=== PATIENT | male | born 1960 | race Caucasian/White ===

== ENCOUNTER → 2017-05-27 | Day surgery (SDC) | payer BC ==
[~2017-05-27] MED LIST: LIDOCAINE 1% PF 2 ML VIAL. ID; LIDOCAINE 2% 100 MG/5 ML SYRINGE.; MIDAZOLAM HCL/PF 2 MG/2 ML VIAL. IV; PROPOFOL 40 ML IV; fentaNYL PF VIAL 100 MCG/2 ML VIAL IV
[2017-05-27] MEDS: IV RINGERS,LACTATED 1000ML 1,000 ML IV (08:15)
== END | disposition home or self-care (01) ==
LOC: ENDOS 07:35
DX: Z12.11 Encounter for screening for malignant neoplasm of colon (principal); K64.0 First degree hemorrhoids; Z86.010 Personal history of colon polyps; I10 Essential (primary) hypertension; M19.90 Unspecified osteoarthritis, unspecified site; Z90.49 Acquired absence of other specified parts of digestive tract; Z79.899 Other long term (current) drug therapy; Z72.89 Other problems related to lifestyle
CPT/HCPCS: 45378; J2704

== ENCOUNTER → 2017-06-22 | Outpatient (CLI) | payer BC | END | disposition home or self-care (01) | LOC: KCIC MRI 16:02 | DX: M75.101 Unspecified rotator cuff tear or rupture of right shoulder, not specified as traumatic (principal) | CPT/HCPCS: 73221 ==

== ENCOUNTER 2017-11-17 11:03 | Day surgery (SDC) | payer BC ==
[~2017-11-17] VITALS: Ht 184.2 cm; Wt 103.0 kg
[~2017-11-17 11:03] MED LIST changes: +ALPR0.25 PO; +CYCL10TA2 PO; +EPINEPHrine VIAL 30 MG/30 ML VIAL ONE; -LIDOCAINE 1% PF 2 ML VIAL. ID; -LIDOCAINE 2% 100 MG/5 ML SYRINGE.; -MIDAZOLAM HCL/PF 2 MG/2 ML VIAL. IV; +NAPR-514 PO; +OXYC-327 PO; -PROPOFOL 40 ML IV; +SERT100T PO; +TEMA7.5C PO; +TRAM50TA PO; +TRAZ-85 PO; +VALS1TAB8 PO; -fentaNYL PF VIAL 100 MCG/2 ML VIAL IV
[2017-11-17] MEDS ORDERED: IV RINGERS,LACTATED 1000ML 1,000 ML IV SCH ×2 (11:08→14:46)
[2017-11-17] MEDS ORDERED: fentaNYL PF VIAL 100 MCG/2 ML VIAL IV PRN ×3 (11:15→15:00)
[2017-11-17] MEDS ORDERED: LIDOCAINE 1% PF 2 ML VIAL. ID PRN ×2 (11:15→15:00)
[2017-11-17] MEDS ORDERED: MIDAZOLAM HCL/PF 2 MG/2 ML VIAL. IV PRN (11:15)
[2017-11-17] MEDS ORDERED: MIDAZOLAM HCL/PF 2 MG/2 ML VIAL. ONE (11:39)
[2017-11-17] MEDS ORDERED: ROPIVacaine 0.5% PF 20 ML VIAL. ONE (11:39)
[2017-11-17] MEDS ORDERED: PROPOFOL 20 ML IV ONE (12:00)
[2017-11-17] MEDS ORDERED: fentaNYL PF VIAL 100 MCG/2 ML VIAL ONE ×2 (12:00→13:06)
[2017-11-17] MEDS ORDERED: DEXAMETHASONE SOD PHOS 20 MG/5 ML VIAL. ONE (12:00)
[2017-11-17] MEDS ORDERED: ONDANSETRON PF 4 MG/2 ML VIAL. ONE (12:00)
[2017-11-17] MEDS ORDERED: ePHEDrine PF IN SALINE 50 MG/5 ML DISP.SYRIN IV ONE ×2 (12:32→14:52)
[2017-11-17] MEDS ORDERED: GLYCOPYRROLATE 1 MG/5 ML VIAL. ONE (13:10)
[2017-11-17] MEDS ORDERED: HYDROmorphone 2 MG/ML VIAL IV PRN (15:00)
[2017-11-17] MEDS ORDERED: ONDANSETRON PF 4 MG/2 ML VIAL. IV PRN (15:00)
[2017-11-17] MEDS ORDERED: KETOROLAC 30 MG/ML VIAL. ONE (15:00)
[2017-11-17] MEDS ORDERED: KETOROLAC 30 MG/ML VIAL. IV ONE (15:15)
--- NOTE | 2017-11-17 15:17 | DISCH ---
DISCHARGE INSTRUCTIONS Condition on Discharge Condition on Discharge: Stable Activity After Discharge Activity Instructions for Disc: Other, see below (passive range of motion left shoulder only, fine motor use okay with elbow at side) Other activity instructions: where immobilizer at night, may remove during day for pendulum exercises Exercise Instruction after Dis: Exercise per therapy Weight Bearing Status after Di: Non weight bearing Diet after Discharge Diet after Discharge: Regular Wound Incision Care Wound/Incision Care: Ice to area for comfort, Change dressing (remove dressing in 2 days may then shower report knee redness or drainage ongoing) Contacting the after DC Call your doctor for: Concerns you may have Follow-Up Follow up with: Juan J 7-10 days YASEMIN MEDRANO MD Nov 17, 2017 15:17
[2017-11-17] MEDS ORDERED: HYDR2TAB31 PO (15:19)
--- NOTE | 2017-11-17 15:35 | PDOC4 ---
Operative Note Operative Note Date of surgery: 11/17/2017 Preoperative diagnosis: Rotator cuff tear, biceps anchor fraying, acromioclavicular joint degenerative disease and pain Postoperative diagnosis: Same with full-thickness distal supraspinatus tear and biceps anchor compromise Operative procedure: Right shoulder arthroscopy biceps tenodesis distal clavicle excision, subacromial decompression, mini open rotator cuff repair Surgeon: Juan J Assist: Kandi Anesthesia: Gen. plus scalene block Estimated blood loss: 15 mL Complications: None Operative indications: Patient is a 57-year-old male with left shoulder pain unresponsive to nonoperative management. He had undergone previous injection with temporary and incomplete relief MRI shows a distal supraspinatus tear and significant superior labral fraying with biceps anchor compromise. I had gone over with him the typical treatment for this issue with rotator cuff repair planned likely biceps tenodesis addressing any other pathological conditions in the shoulder we had gone over the rationale for protection of these planned repairs the long recovery process typical possibility of infection nerve or blood vessel damage nonhealing continued pain medical or other anesthetic complications among others all his questions were answered he wishes to proceed with surgical evaluation and treatment. Operative text: Patient was identified procedure verified patient placed in the supine position on the operating table. After adequate amounts of general anesthesia plus a pre-existing scalene block were obtained he was placed in the decubitus position left side up using the beanbag and all bony prominences were well-padded shoulder was first examined under anesthesia found to have full range of motion no instability in the left shoulder was then prepped and draped in standard sterile fashion placed in the arthroscopic arm mac with a total of 15 pounds of traction after timeout was performed patient procedure identified and verified a standard posterior portal was established an anterior portal established using spinal needle localization and the shoulder joint was systematically examined he was as expected found to have significant labrum fraying and as this was trimmed back to stable tissue there was significant fraying and compromise of the biceps anchor certainly more than the 25% threshold and I elected to perform a biceps tenodesis therefore the biceps tendon was cut and tagged and the remainder the labrum debrided. There was certainly concern for a full-thickness tear of the distal supraspinatus well maintained glenohumeral joint normal bare area of the humerus and normal capsule ligament structures. Subacromial space was then entered and bursal was cleared for visualization he was indeed found to have a palpable full-thickness tear of the distal supraspinatus. Anterior acromial spur was removed to a type I acromion using an arthroscopic bur with cutting block technique distal clavicle was excised 1 cm to allow adequate joint space preserving the overlying joint capsule for stability bony fragments were evacuated with arthroscopic shaver. A RoomActually biceps tenodesis anchor was used after drilling to a size 8 and excellent bony fixation was obtained with good tension on the biceps. A dual row rotator cuff repair was carried out with a total of 22.9 double loaded Max braid juggernaut anchors that were secured laterally by a Quattro knotless link anchor laterally excellent apposition was noted through all degrees of internal/external rotation thorough irrigation again carried out normal saline solution closure accomplished with buried Vicryl suture subcuticular Monocryl sterile dressings were applied he was placed in an immobilizer extirpated transferred to postop holding in stable condition having tolerated procedure well. aKndi guaman was present for the procedure and assisted in the prepping draping retraction YASEMIN MEDRANO MD Nov 17, 2017 15:35
[2017-11-17] MEDS ORDERED: HYDROmorphone 2 MG TABLET PO ONE ×2 (15:45)
[2017-11-17] MEDS: PROCHLORPERAZINE 10 MG/2 ML VIAL. IV PRN ×2 (15:46→16:03)
[2017-11-17] MEDS: fentaNYL PF VIAL 100 MCG/2 ML VIAL IV PRN ×2 (15:47→16:03)
[2017-11-17] MEDS: MORPHINE SULFATE 2 MG/ML VIAL. IV PRN ×2 (15:48→16:04)
[2017-11-17 16:45] VITALS: BP 150/80
== END 2017-11-17 17:27 | disposition home or self-care (01) ==
LOC: SURG 11:03
PROVIDERS: ATTEND Orthopaedic Surgery
DX: S46.012A Strain of muscle(s) and tendon(s) of the rotator cuff of left shoulder, initial encounter (principal); M19.012 Primary osteoarthritis, left shoulder; S46.212A Strain of muscle, fascia and tendon of other parts of biceps, left arm, initial encounter; S43.432A Superior glenoid labrum lesion of left shoulder, initial encounter; I10 Essential (primary) hypertension; M76.30 Iliotibial band syndrome, unspecified leg; F41.9 Anxiety disorder, unspecified; F32.9 Major depressive disorder, single episode, unspecified; Z90.49 Acquired absence of other specified parts of digestive tract; Z79.899 Other long term (current) drug therapy; Z98.890 Other specified postprocedural states; Z82.49 Family history of ischemic heart disease and other diseases of the circulatory system; X58.XXXA Exposure to other specified factors, initial encounter; Y93.89 Activity, other specified; Y92.89 Other specified places as the place of occurrence of the external cause; Y99.8 Other external cause status
CPT/HCPCS: 23412; 29824; 29828; A7015; C1713; C1782; J0171; J0690; J0780; J1100; J1885; J2250; J2270; J2405; J2704; J2795; J3010; J3490; J7120

== ENCOUNTER 2018-02-09 08:29 | Day surgery (SDC) | payer BC ==
[~2018-02-09] VITALS: Ht 184.2 cm; Wt 103.9 kg
[~2018-02-09 08:29] MED LIST changes: +ALPR0.5T PO; -EPINEPHrine VIAL 30 MG/30 ML VIAL ONE; +HYDR2TAB31 PO; +HYDROmorphone 2 MG/ML VIAL IV PRN; +IV RINGERS,LACTATED 1000ML 1,000 ML IV SCH; +LIDOCAINE 1% PF 2 ML VIAL. ID PRN; +MORPHINE SULFATE 2 MG/ML VIAL. IV PRN; +ONDANSETRON PF 4 MG/2 ML VIAL. IV PRN; -OXYC-327 PO; +OXYC1TAB19 PO; +PROCHLORPERAZINE 10 MG/2 ML VIAL. IV PRN; +VALS1TAB14 PO; +fentaNYL PF VIAL 100 MCG/2 ML VIAL IV PRN
--- NOTE | 2018-02-09 09:13 | DISCH ---
DISCHARGE INSTRUCTIONS Condition on Discharge Condition on Discharge: Stable Activity After Discharge Activity Instructions for Disc: Other, see below (and motor use with elbow at side permitted, no lifting arm away from body actively) Exercise Instruction after Dis: Exercise per therapy (passive range of motion of right shoulder only for 1 month postoperatively) Weight Bearing Status after Di: Non weight bearing Diet after Discharge Diet after Discharge: Regular Wound Incision Care Wound/Incision Care: Ice to area for comfort, Change dressing (May remove dressing in 2 days may then shower no soaking until sutures removed) Community/Resources/Services Services at Discharge: PT EVALUATE & TREAT (passive range of motion right shoulder only one-month postop secondary to rotator cuff repair) Contacting the [facility] after DC Call your doctor for: Concerns you may have Follow-Up Follow up with: Juan J 7-10 days YASEMIN MEDRANO MD Feb 09, 2018 09:13
[2018-02-09] MEDS ORDERED: EPINEPHrine VIAL 30 MG/30 ML VIAL ONE (09:22)
[2018-02-09] MEDS ORDERED: MIDAZOLAM HCL/PF 2 MG/2 ML VIAL. ONE (09:26)
[2018-02-09] MEDS ORDERED: fentaNYL PF VIAL 100 MCG/2 ML VIAL ONE ×2 (09:27→13:39)
[2018-02-09] MEDS ORDERED: PROPOFOL 20 ML IV ONE (09:27)
[2018-02-09] MEDS ORDERED: DEXAMETHASONE SOD PHOS 20 MG/5 ML VIAL. ONE (09:27)
[2018-02-09] MEDS ORDERED: ONDANSETRON PF 4 MG/2 ML VIAL. ONE (09:27)
[2018-02-09] MEDS ORDERED: ROPIVacaine 0.5% PF 20 ML VIAL. ONE (09:30)
[2018-02-09] MEDS ORDERED: ROCURONIUM 50 MG/5 ML VIAL. ONE (09:46)
[2018-02-09] MEDS ORDERED: ePHEDrine PF IN SALINE 50 MG/5 ML DISP.SYRIN IV ONE (10:27)
[2018-02-09] MEDS ORDERED: SEVOFLURANE > 120 MINUTES. IH ONE (12:45)
[2018-02-09] MEDS ORDERED: oxyCODONE/APAP 7.5/325 1 TAB TABLET PO ONE (13:45)
[2018-02-09 13:50] VITALS: BP 129/74
--- NOTE | 2018-02-09 21:00 | PDOC4 ---
Operative Note Operative Note Date of surgery: 02/09/2018 Preoperative diagnosis: Right shoulder rotator cuff repair acromioclavicular joint pain and degenerative change and subacromial impingement Postoperative diagnosis: Same with type I SLAP tear Operative procedure: Right shoulder arthroscopy arthroscopic rotator cuff repair debridement of type I SLAP tear distal clavicle excision and subacromial decompression Surgeon: Juan J Assist: Timoteo Willis nurse practitioner Anesthesia: Gen. plus scalene block Estimated blood loss: 10 mL Complications: None Operative indications: Patient is a 57-year-old male who had excellent results from a left shoulder rotator cuff repair and has had similar symptoms on the right with MRI confirming the clinical suspicion of a rotator cuff tear. He also appears to have significant acromioclavicular joint pain and degenerative changes and I talked to him about addressing all additional pathologies including the possibility of a distal clavicle excision and decompression to remove any bone spur that would endanger the rotator cuff repair. All his questions were answered consent was obtained and he agrees to proceed with operative evaluation and treatment having reviewed with me the possibility of nonhealing continued pain long recovery process rationale for protection Operative text: Patient was identified procedure verified patient placed in the supine position on the operating table. After adequate amounts of general anesthesia plus a pre-existing scalene block were obtained he was placed in the decubitus position right side up all bony prominences well-padded shoulder was found to have full range of motion and no instability. The right shoulder was then prepped and draped in standard sterile fashion placed in the arthroscopic arm mac with a total of 15 pounds of traction and after timeout was performed patient procedure identified and verified standard posterior portal was established an anterior portal established using spinal needle localization and the shoulder joint was systematically examined. Glenohumeral joint was noted to be in good condition with minimal chondromalacia he did have a type I SLAP tear that was debrided back to stable tissue with arthroscopic shaver biceps anchor was noted to be intact as was the subscapularis tendon and capsule ligament structures. He did have a full-thickness tear of the anterior supraspinatus normal bare area of the humerus. Subacromial space was then entered and bursa was resected to allow visualization he had a large anterior acromial spur and minimal clearance in the subacromial space. The full- thickness rotator cuff tear was confirmed in the anterior supraspinatus footprint which was debrided back to a stable footprint. Given the anterior acromial spur and potential for compromising the rotator cuff repair subacromial decompression was carried out eliminating the anterior acromial spur to a type I acromion using cutting block technique distal clavicle was noted to be narrowed and arthritic and was excised 1 cm to allow adequate joint space preserving the overlying joint capsule for stability. A double row rotator cuff repair was then carried out with medial row anchors supplied by [employer] that were absorbable and had 4 strands of tape each these were passed individually resulting in a mattress configuration and was anchored laterally by absorbable Telly anchors anchoring 2 strands each from the anterior and posterior anchor with 2 separately placed lateral anchors anteriorly and posteriorly excellent watertight footprint repair was carried out and was intact in all degrees of internal/external rotation. Arthroscopic fluid was drained from the joint portals were closed with nylon suture he was dressed sterilely and placed in a shoulder immobilizer and returned to recovery room in stable condition having tolerated procedure well YASEMIN MEDARNO MD Feb 09, 2018 21:00
== END 2018-02-09 15:00 | disposition home or self-care (01) ==
LOC: SURG 08:29
PROVIDERS: ATTEND Orthopaedic Surgery
DX: S46.011A Strain of muscle(s) and tendon(s) of the rotator cuff of right shoulder, initial encounter (principal); I10 Essential (primary) hypertension; F32.9 Major depressive disorder, single episode, unspecified; F41.9 Anxiety disorder, unspecified; X58.XXXA Exposure to other specified factors, initial encounter; Y93.89 Activity, other specified; Y92.89 Other specified places as the place of occurrence of the external cause; Y99.8 Other external cause status; Z98.890 Other specified postprocedural states
CPT/HCPCS: 29823; 29824; 29827; A7015; C1713; J0171; J0690; J1100; J2250; J2405; J2704; J2795; J3010

== ENCOUNTER → 2019-02-11 | Outpatient (CLI) | payer BC ==
[~2019-02-11] MED LIST changes: -HYDROmorphone 2 MG/ML VIAL IV PRN; -IV RINGERS,LACTATED 1000ML 1,000 ML IV SCH; -LIDOCAINE 1% PF 2 ML VIAL. ID PRN; -MORPHINE SULFATE 2 MG/ML VIAL. IV PRN; -ONDANSETRON PF 4 MG/2 ML VIAL. IV PRN; -PROCHLORPERAZINE 10 MG/2 ML VIAL. IV PRN; +TRAZ-118 PO; -TRAZ-85 PO; -fentaNYL PF VIAL 100 MCG/2 ML VIAL IV PRN
--- NOTE | 2019-02-11 17:37 | KCIC ---
LUMBAR SPINE WO CONTRAST History: Low back pain. Radiculopathy. Right-sided. Technique: Multiplanar, multi sequential MR imaging was performed of the lumbar spine. Comparison: None Findings: Rightward curvature of the thoracolumbar spine. Otherwise, normal alignment.. No fracture. Degenerative endplate edema L1-L2, L2-L3 and L5-S1. T12 and L4 vertebral body hemangioma. Conus terminates at the normal location. No evidence of nerve root clumping. Bilateral renal cysts producing artifact overlying the paraspinal soft tissues and sagittal images. T12-L1: Left central disc protrusion contributing to mild cord flattening. No canal narrowing. No neuroforaminal narrowing. L1-L2: Posterior disc bulge. Mild facet arthropathy. Subarticular recess narrowing. No canal narrowing. Mild left neuroforaminal narrowing. No right neuroforaminal narrowing. L2-L3: Posterior disc bulge superimposed left subarticular disc extrusion extending inferiorly. Left subarticular recess narrowing with abutment of the descending left L3 nerve root. Mild facet arthropathy. No canal narrowing. Mild left neuroforaminal narrowing. L3-L4: Broad-based posterior disc bulge. Moderate facet arthropathy. No canal narrowing. Superimposed left foraminal disc protrusion. Mild left neural foraminal narrowing. Broad-based posterior disc bulge. Mild facet arthropathy. No canal narrowing. Moderate right and mild left neural foraminal narrowing. L4-L5: Broad-based posterior disc bulge. Moderate facet arthropathy. No canal narrowing. Severe right and moderate left neuroforaminal narrowing. L5-S1: No canal or neuroforaminal narrowing. Impression: 1. Moderate multilevel lumbar spondylosis. 2. L2-L3 left subarticular disc extrusion contributing to mass effect on the left descending L3 nerve root. Correlate for radiculopathy. 3. Multilevel neural foraminal narrowing most prominent right L5-S1. Correlate for radiculopathy. Electronically signed by: Jose Perez DO (02/11/2019 5:34 PM) [id number]
== END | disposition home or self-care (01) ==
LOC: KCIC MRI 11:14
DX: M51.15 Intervertebral disc disorders with radiculopathy, thoracolumbar region (principal); M47.26 Other spondylosis with radiculopathy, lumbar region; N28.1 Cyst of kidney, acquired; M12.88 Other specific arthropathies, not elsewhere classified, other specified site; M48.07 Spinal stenosis, lumbosacral region
CPT/HCPCS: 72148

== ENCOUNTER 2021-03-09 11:10 | Emergency (ER) | payer BC, OTHER ==
[~2021-03-09] VITALS: Ht 185.4 cm; Wt 103.1 kg
[~2021-03-09 11:10] MED LIST changes: +CYCL10TA19 PO; -CYCL10TA2 PO
[2021-03-09 11:35] VITALS: BP 150/73
[2021-03-09] MEDS ORDERED: oxyCODONE/APAP 5/325 1 TAB TABLET PO ONE (12:00)
[2021-03-09] MEDS ORDERED: IBUPROFEN 400 MG TABLET. PO ONE (12:00)
[2021-03-09] MEDS ORDERED: PROPOFOL 10 MG/ML (20ML) VIAL. IV ONE (12:45)
[2021-03-09] MEDS ORDERED: KETAMINE HCL 500 MG/10 ML VIAL. IV ONE (12:45)
--- NOTE | 2021-03-09 12:45 | RAD ---
AP and lateral radiographs of the right shoulder to include AP and lateral radiographs of the right h umerus 03/09/2021 CLINICAL HISTORY: Fall with injury to the right shoulder and arm. AP internal and external rotation digital radiographs of the right shoulder were obtained. 2 AP and 2 lateral digital radiographs of the right humerus were obtained. The humeral head is dislocated infer ior and medial to the glenoid consistent with an anterior dislocation. No fracture is seen. No fractu re of the right humerus is noted. IMPRESSION: Anterior dislocation of the right shoulder. No fracture is seen. Electronically signed by: Robert Arias MD (03/09/2021 12:43 PM) [id number]
[2021-03-09] MEDS ORDERED: fentaNYL PF VIAL 100 MCG/2 ML VIAL IVP ONE (13:00)
--- NOTE | 2021-03-09 14:02 | PHYS DOC ---
Past Medical History Past Medical History: Hypertension, Other Additional Past Medical Histor: insomnia Past Surgical History: Appendectomy, Other Additional Past Surgical Histo: bilateral shoulder Alcohol Use: None Adult General Chief Complaint Chief Complaint: SHOULDER INJURY HPI HPI Patient is a 60-year-old male with a history of hypertension who presents for evaluation of isolated right shoulder discomfort after falling out of the bed of his pickup truck and striking his right shoulder on a door frame. He denies hitting his head or neck or hitting or hurting any other part of his body during the episode. He denies loss of consciousness, nausea or vomiting or amnesia to events. He is ambulatory with a narrow, steady gait. There is an obvious closed deformity to the right shoulder. No therapy for symptoms prior to arrival. Review of Systems Review of Systems A 12 point review of systems was completed and was negative except where noted in HPI above. Current Medications Current Medications Current Medications Medications (Trade) Dose Ordered Sig/Jesse Start Time Stop Time Status Last Admin Dose Admin Fentanyl Citrate (Fentanyl 2ml Vial) 50 mcg 1X ONCE 03/09/21 13:00 03/09/21 13:01 DC Ibuprofen (Motrin) 800 mg 1X ONCE 03/09/21 12:00 03/09/21 12:01 DC 03/09/21 12:12 800 MG Ketamine HCl (Ketamine) 100 mg 1X ONCE 03/09/21 12:45 03/09/21 12:46 DC Oxycodone/ Acetaminophen (Percocet 5/325) 1 tab 1X ONCE 03/09/21 12:00 03/09/21 12:01 DC 03/09/21 12:12 1 TAB Propofol (Diprivan) 100 mg 1X ONCE 03/09/21 12:45 03/09/21 12:46 DC Allergies Allergies Allergies Coded Allergies Type Severity Reaction Last Updated Verified No Known Drug Allergies 03/09/21 No Physical Exam Physical Exam Older male appearing nontoxic and in no acute distress. Head is normocephalic and atraumatic. Neck is supple and nontender. Oropharynx is moist. Lungs are clear to auscultation at all stations. There is a normal S1 and S2 without rubs or gallops and capillary refill is appropriate, less than 2 seconds globally. Abdomen is soft, nontender and nondistended. Skin is warm and dry without cyanosis, clubbing or edema. Psychiatrically, the patient demonstrates appropriate mood and affect and is alert. Evaluation of the right upper extremity is remarkable for an obvious closed deformity to the right shoulder. Moderate discomfort with any attempt at ranging of the right shoulder. No discomfort with ranging at any other joints of the right upper extremity. Right upper extremity is neurovascularly intact distally with strength out of 5, sensation intact light touch in all nerve distributions, radial pulse 2+, capillary refill less than 2 seconds, hand warm and well- perfused. Current Patient Data Vital Signs Vital Signs Date Time Temp Pulse Resp B/P (MAP) Pulse Ox O2 Delivery O2 Flow Rate FiO2 03/09/21 13:11 65 18 4.0 64 18 2.0 68 18 03/09/21 12:12 Room Air 03/09/21 11:35 98.5 98 98.5 EKG EKG [] Radiology/Procedures Radiology/Procedures AP and lateral radiographs of the right shoulder to include AP and lateral radiographs of the right humerus 03/09/2021 CLINICAL HISTORY: Fall with injury to the right shoulder and arm. AP internal and external rotation digital radiographs of the right shoulder were obtained. 2 AP and 2 lateral digital radiographs of the right humerus were obtained. The humeral head is dislocated inferior and medial to the glenoid consistent with an anterior dislocation. No fracture is seen. No fracture of the right humerus is noted. IMPRESSION: Anterior dislocation of the right shoulder. No fracture is seen. Electronically signed by: Robert Arias MD (03/09/2021 12:43 PM) [id number] DICTATED and SIGNED BY: ROBERT ARIAS MD DATE: 03/09/21 [id number] 0 [] Course & Med Decision Making Course & Med Decision Making 60-year-old gentleman with a closed anterior right shoulder dislocation. Reduced by me via traction/countertraction under procedural sedation with propofol and ketamine. Patient tolerated the sedation and reduction procedures well and there were no complications. Neurovascularly intact to the right upper extremity distally both pre and post procedure. Shoulder immobilizer placed. Post reduction films demonstrate excellent reduction. Will refer to orthopedics for close follow-up. Patient already has naproxen and tramadol at home for pain. He understands that he is to return to the emergency department right away if symptoms worsen or if other new symptoms of concern develop, all questions are answered. Dragon Disclaimer Dragon Disclaimer This electronic medical record was generated, in whole or in part, using a voice recognition dictation system. Departure Departure Impression: Primary Impression: Closed anterior dislocation of right shoulder Disposition: 01 HOME / SELF CARE / HOMELESS Condition: IMPROVED Referrals: MIKKI HAYNES Jr. DO Patient Instructions: Shoulder Dislocation Additional Instructions: Follow-up very closely with Dr. Haynes of orthopedics in the office in the next 2 to 4 days for a reevaluation of your symptoms and to discussion of next best steps in care. Keep the shoulder immobilizer in place until cleared by the orthopedic doctor to remove it. Rest, ice and elevate. Take a 500 mg naproxen pill twice a day with food to prevent stomach upset. For pain not well controlled with naproxen you may take a tramadol pill every 6 hours as needed. Be careful because tramadol can make you sleepy do not drive or work or operate machinery while taking it return to the emergency department right away for worsening symptoms of any kind or with any other new symptoms of concern. Problem Qualifiers Primary Impression: Closed anterior dislocation of right shoulder Encounter type: initial encounter Qualified Codes: S43.014A - Anterior dislocation of right humerus, initial encounter ROBERT HANLEY MD Mar 09, 2021 14:02
--- NOTE | 2021-03-09 14:03 | RAD ---
Two-view right shoulder radiographs 03/09/2021 CLINICAL HISTORY: Post shoulder reduction. AP and transscapular digital radiographs right shoulder were obtained. Comparison study is dated jannet ier the same day at 1200 hours. The previously noted anterior dislocation of the right shoulder have been reduced. The humeral head now articulates normally within the glenoid. No fractures or dislocati on is seen. IMPRESSION: Post reduction of an anterior dislocation of the right shoulder. Electronically signed by: Robert Arias MD (03/09/2021 2:01 PM) [id number]
== END 2021-03-09 14:32 | disposition home or self-care (01) ==
LOC: ER 11:10
DX: S43.004A Unspecified dislocation of right shoulder joint, initial encounter (principal); I10 Essential (primary) hypertension; W06.XXXA Fall from bed, initial encounter; Y93.89 Activity, other specified; Y92.89 Other specified places as the place of occurrence of the external cause; Y99.8 Other external cause status
CPT/HCPCS: 23650; 73030; 73060; 99285; J2704; J3010; J3490